=== PATIENT | female | born 1940 | race Hispanic/Latino ===

== ENCOUNTER 2019-10-05 14:43 | Emergency (ER) | payer MEDICARE, SELFPAY ==
--- NOTE | ~2019-10-05 | CT_ITS ---
EXAMINATION: CT brain wo con DATE: 10/05/2019 15:16 INDICATION: Head injury. TECHNIQUE: Computed tomography (CT) of the head was performed without intravenous contrast. The mA wa s adjusted according to patient size. Iterative reconstruction technique was employed. The dose-lengt h product was 605.33 mGy-cm. COMPARISON: Head CT 02/24/2017 FINDINGS: There are old infarcts involving the left basal ganglia and internal capsule. There is an o ld lacunar infarct in the right lentiform nucleus. There is no intracranial hemorrhage, acute infarct ion, or abnormal intracranial mass lesion. The ventricles are normal in size. There are likely change s of ocular lens replacement surgeries. There is mild mucosal thickening in the ethmoid sinuses. The mastoid air cells are normal. IMPRESSION: 1. Old infarcts involving the bilateral basal ganglia and left internal capsule. Reviewed, dictated and finalized at location A. E CURATOR IMPRESSION: 1. Old infarcts involving the bilateral basal ganglia and left internal capsule .
--- NOTE | ~2019-10-05 | XR_ITS ---
EXAMINATION: XR knee RT min 4V DATE: 10/05/2019 15:50 INDICATION: Right knee pain post fall TECHNIQUE: Anteroposterior, 2 oblique and crosstable lateral views of the right knee were obtained COMPARISON: None. FINDINGS: Alignment is normal. No fracture. Joint spaces appear normal on nonweightbearing imaging. No joint e ffusion/layering lipohemarthrosis. Soft tissues are unremarkable. IMPRESSION: 1. Negative right knee radiographs. Reviewed, dictated and finalized at location A. [employer]
--- NOTE | ~2019-10-05 | XR_ITS ---
EXAMINATION: XR hip RT min 3V w AP pelvis DATE: 10/05/2019 15:49 INDICATION: Right hip pain post fall with bruising at the medial femur. TECHNIQUE: Anteroposterior view of the pelvis and anteroposterior, frog leg and cross-table lateral v iews of the right hip were obtained. COMPARISON: None. FINDINGS: Alignment is normal. No fracture. Bilateral hip joint spaces are normal. Mild bilateral sacroiliac os teoarthritis. There are few small heterotopic ossicles projecting over the left buttock. Soft tissues are unremarkable. IMPRESSION: 1. No acute osseous abnormality. Reviewed, dictated and finalized at location A. OSITY INSPECTOR
--- NOTE | 2019-10-05 14:52 | ED.LOWEXIN ---
HPI - Extremity Injury (Lower) General Chief Complaint: Fall Stated Complaint: R KNEE PAIN S/P FALL Time Seen by Provider: 10/05/19 14:51 Source: patient Mode of arrival: EMS Limitations: no limitations History of Present Illness HPI Narrative: Pt is an 79 y/o female who presents to ED, via EMS, with c/o rt knee pain. Pt states that she fell this morning at 11AM. Pt has a H/o a CVA and recently started walking again because she had rt sided paralysis. She hit the rt side of her face and injured her rt knee. Pt was using a walk assist when her knee gave out and she fell. She started walking again a month ago. Pt lives at home with her daughter. She had a CVA at [facility] where she received TPA and air lifted out to U. Pt takes Xarelto, Plavix, and ASA 81mg as her anticoagulation therapy. complaint: knee injury Onset (ago): hour(s) (3-4) Injury: Right: knee Place: home Context: fall Associated symptoms: unable to bear weight Other symptoms: none Related Data Home Medications Medication Instructions Recorded Confirmed Aspirin Low Dose 10/05/19 Calcium 500 10/05/19 Travatan Z 10/05/19 Xarelto 10/05/19 alprazolam 10/05/19 atorvastatin 10/05/19 carvedilol 10/05/19 clopidogrel 10/05/19 cyanocobalamin (vitamin B-12) 10/05/19 escitalopram oxalate mg 10/05/19 famotidine 10/05/19 lisinopril 10/05/19 melatonin 10/05/19 montelukast 10/05/19 promethazine 10/05/19 Allergies Allergy/AdvReac Type Severity Reaction Status Date / Time No Known Allergies Allergy Verified 10/05/19 15:29 Review of Systems Review of Systems: All systems reviewed & are unremarkable except as noted in HPI and below Musculoskeletal: Musculoskeletal: Reports arthralgias (rt knee) Integumentary/Breasts: Skin/Breast: Reports other (contusion rt periorbital region) [facility] Past Medical History Medical History (Updated 10/05/19 @ 16:34 by Debbie Valentin MD) CVA (cerebral vascular accident) Depression Glaucoma HLD (hyperlipidemia) HTN (hypertension) Seasonal allergies Surgical History Surgical History (Updated 10/05/19 @ 15:29 by Faye Lee) H/O section x2 Hx of cholecystectomy Social History Social History (Updated 10/05/19 @ 15:30 by Faye Lee) Smoking status: Former smoker Additional smoking assessment comments: Smoked when she was young Living arrangements: with family Comments Her PCP is Lashon Cooley NP Exam Const: General: cooperative, no acute distress and alert Nutritional Appearance: well nourished Orientation/consciousness: patient oriented x3 Limitations: no limitations HENMT: Head: contusion (rt periorbital region with minimal swelling but no tenderness) Mouth: Yes lip normal and Yes moist mucous membranes Teeth and gingiva: dentures (top and bottom) Neck: Neck: nontender Resp: Effort & Inspection: normal respiratory effort Auscultation: clear to auscultation bilaterally Cardio: Rate: regular rate Rhythm: regular rhythm GI: GI Palp: Yes Soft to palpation and No Tenderness to palpation present (GI) Auscultation: normal bowel sounds Skin: General skin exam: normal color Neuro: General: patient oriented x3 Cognition (Neuro): normal cognition Speech: normal speech Extrem: General: normal to inspection, full ROM, no clubbing, no cyanosis and edema (mild) bilateral Right lower extremity: hip/thigh (pain with rt leg ROM) Details: tenderness Location: of the hip (and proximal femur) and knee Details: no tenderness Psych: Mental Status: mental status grossly normal Affect: normal affect Attitude: cooperative Course Course Emergency Course: No acute abnormalities noted on imaging. Discussed diagnosis of facial contusion and knee sprain. Tylenol given for pain. Vital Signs Vital signs: Vital Signs Temperature 98.2 F 10/05/19 15:00 Pulse Rate 56 L 10/05/19 15:00 Respiratory Rate 18 10/05/19 15:00 Blood Press
[2019-10-05 15:00] VITALS: BP 144/62; PULSE 56; RESP 18; TEMP 36.8; O2SAT 95
[2019-10-05 15:27] VITALS: O2SAT 99
[2019-10-05] MEDS: ACETAMINOPHEN 500 MG TABLET 1000 MG PO (16:47)
[2019-10-05 17:07] VITALS: BP 134/72; PULSE 84; RESP 18; O2SAT 99
== END 2019-10-05 17:05 | disposition home or self-care (01) ==
PROVIDERS: Emergency Provider Emergency Medicine; PCP Nurse Practitioner Adult Health
DX: S83.91XA Sprain of unspecified site of right knee, initial encounter (principal); S00.83XA Contusion of other part of head, initial encounter; I69.951 Hemiplegia and hemiparesis following unspecified cerebrovascular disease affecting right dominant side; Z79.01 Long term (current) use of anticoagulants; Z79.82 Long term (current) use of aspirin; Z79.02 Long term (current) use of antithrombotics/antiplatelets; F32.9 Major depressive disorder, single episode, unspecified; I10 Essential (primary) hypertension; E78.5 Hyperlipidemia, unspecified; H40.9 Unspecified glaucoma; Z87.891 Personal history of nicotine dependence; W18.39XA Other fall on same level, initial encounter
CPT/HCPCS: 70450; 73502; 73564; 99284; A9270

== ENCOUNTER 2020-01-11 17:54 | Emergency (ER) | payer MEDICARE, SELFPAY ==
[2020-01-11] VITALS (7 sets, daily range): BP systolic 115–151; BP diastolic 51–104; PULSE 58–77; RESP 16–20; TEMP 36.3–36.9; O2SAT 96–98
--- NOTE | ~2020-01-11 | XR_ITS ---
EXAMINATION: XR shoulder RT min 2V EXAM DATE: 01/11/2020 19:24 INDICATION: Fall, right shoulder pain. TECHNIQUE: The following right shoulder projections obtained: frontal projection with internal rotati on, frontal projection with external rotation, Grashey, and scapular Y view (4+ views). There is no prior study for comparison. FINDINGS: Mild inferior subluxation of humeral head likely chronic. There are no acute right shoulder fractures or dislocations identified. There is no subcutaneous gas. Probable rotator cuff calcific tendinosis. There are no radiopaque foreign bodies. There is moderate glenohumeral primary osteoar thritis. Right upper ribs are unremarkable. IMPRESSION: 1. Right shoulder exam without acute osseous findings. Reviewed, dictated and finalized at location A.
--- NOTE | ~2020-01-11 | XR_ITS ---
EXAMINATION: XR knee RT 3V EXAM DATE: 01/11/2020 20:25 INDICATION: Initial encounter following injury, with pain of the right knee. TECHNIQUE: Three projections of the right knee. Comparison is made to prior examination from 10/05/2019 . FINDINGS: No evidence osteochondral defect or joint body in the right knee joint. There is no join t effusion. There are no acute fractures or dislocations identified. There is no subcutaneous gas. The soft tissue is unremarkable. There are no radiopaque foreign bodies. IMPRESSION: 1. Right knee exam without acute osseous findings. Reviewed, dictated and finalized at location A.
--- NOTE | ~2020-01-11 | XR_ITS ---
EXAMINATION: XR chest 2V EXAM DATE: 01/11/2020 19:24 INDICATION: Frequent falls. Weakness. TECHNIQUE: Frontal and lateral projections of the chest obtained and reviewed. Comparison is made to prior examination from 08/14/2017. FINDINGS: The lungs are clear. There are no pleural effusions. Cardiac silhouette is prominent but magnified on this AP technique. Cardiac silhouette is stable in size compared to prior exam. There i s aortic arteriosclerosis. There is no pneumothorax suspected. The bones are osteopenic. There are bony degenerative changes. There are cholecystectomy clips. There is no significant interval change. IMPRESSION: No acute cardiopulmonary findings. Reviewed, dictated and finalized at location A.
--- NOTE | ~2020-01-11 | CT_ITS ---
EXAMINATION: CT abdomen pelvis w con EXAM DATE: 01/11/2020 21:47 INDICATION: Abdominal pain, nausea. TECHNIQUE: Spiral CT of the abdomen and pelvis was performed following intravenous injection of 100 m L Omnipaque 350. Axial, coronal and sagittal images were reviewed. The dose-length product (DLP) fo r this examination was 731.45 mGy-cm. The exposure was tailored according to patient size (auto mA e xposure control), and iterative reconstruction (ASIR) was used as additional dose reduction technique . Comparison is made to prior examination from 05/20/2012. FINDINGS: There is a left adrenal gland lesion measuring 8 mm, statistically most likely an adenoma. Liver, pancreas, spleen, right adrenal gland are unremarkable. There are cholecystectomy clips. Por amrit and splenic veins are patent. Kidneys enhance symmetrically. There is no hydronephrosis. The uterus is unremarkable. The bladder is unremarkable. There is no retroperitoneal or pelvic lymphad enopathy. There is moderate scattered arteriosclerotic disease. There is extensive sigmoid diverticulosis. There is mild adjacent inflammation, could be mild uncompl icated acute diverticulitis. There is also a segment of ascending colon that appears to have mild wal l thickening in spite of having stool content (see axial image 85/180, finding indicated). This is po ssible incidental colonic adenocarcinoma. The appendix is normal. There is small sliding gastroesoph ageal hiatal hernia. There is a 3 cm duodenal diverticulum. There is expected amount of colonic stool . No free intraperitoneal gas. There is cardiomegaly. Some dependent groundglass opacity probably atelectasis or possibly mild pulmonary edema. The lung bases are unremarkable. There are no osteob lastic or osteolytic lesions identified. IMPRESSION: 1. Possible ascending colonic adenocarcinoma. Recommend follow-up colonoscopy. 2. Probable mild uncomplicated sigmoid diverticulitis. 3. Cardiomegaly. Dependent groundglass opacity, could be atelectasis or mild pulmonary edema. 4. Chronic findings Reviewed, dictated and finalized at location G. IMPRESSION: 1. Possible ascending colonic adenocarcinoma. Recommend follow-up colonoscopy. 2. Probable mild uncomplicated sigmoid diverticulitis. 3. Cardiomegaly. Dependent groundglass opacity, could be atelectasis or mild p ulmonary edema. 4. Chronic findings
--- NOTE | ~2020-01-11 | XR_ITS ---
EXAMINATION: XR ankle RT min 3V EXAM DATE: 01/11/2020 20:25 INDICATION: Initial encounter following injury, with pain of the right ankle. TECHNIQUE: Right ankle frontal, lateral and oblique projections obtained and reviewed. There is no p rior study for comparison. FINDINGS: The right ankle mortise appears intact. There are no acute fractures or dislocations iden tified. There is no subcutaneous gas. The soft tissue is unremarkable. There are no radiopaque fo reign bodies. IMPRESSION: 1. Right ankle exam without acute osseous findings. Reviewed, dictated and finalized at location A.
--- NOTE | ~2020-01-11 | CT_ITS ---
EXAMINATION: CT brain wo con EXAM DATE: 01/11/2020 20:46 INDICATION: Falls with elevated INR. TECHNIQUE: Spiral CT of the head was performed without contrast. Axial, coronal and sagittal images were reviewed. The dose-length product (DLP) for this examination was 605.33 mGy-cm. The exposure w as tailored according to patient size, and iterative reconstruction (ASIR) was used as additional dos e reduction technique. Comparison is made to prior examination from 10/05/2019. FINDINGS: There is no acute intraparenchymal hemorrhage. No evidence of intraparenchymal brain mass lesion. No evidence of acute infarction. Please note that initial head CT has limited sensitivity f or small or acute infarctions. There are old left basal ganglia lacunar infarctions. These are uncha nged. There is mild periventricular and subcortical hypodensity, nonspecific but probably related to small vessel ischemic disease. There is mild prominence of the sulci and ventricles related to cer ebral atrophy. There is intracranial carotid arteriosclerosis. There are no extra-axial collection s. There is no mass effect or midline shift. Patient has had bilateral ocular lens surgery. Soft t issue is unremarkable. The visualized sinuses and mastoid air cells are well aerated. IMPRESSION: 1. No acute intracranial findings. 2. Chronic age related findings. 3. Old left lacunar infarctions. Reviewed, dictated and finalized at location A.
--- NOTE | 2020-01-11 18:04 | ECG_ITS ---
Measurements Intervals [place] Rate: 63 P: 23 AK: 140 QRS: 1 QRSD: 85 T: 69 QT: 399 QTc: 411 Interpretive Statements SINUS RHYTHM BORDERLINE ST ABNORMALITY- HIGH LATERAL LEADS BORDERLINE ECG Electronically Signed On 01-12-2020 7:10:42 CDT by Roel Gerardo D.O.
[2020-01-11 18:56] LABS: Bilirubin,Total 0.3 mg/dL (0.2-1.3)
--- NOTE | 2020-01-11 18:59 | ED.WEAKNESS ---
HPI - Weakness General Chief complaint: Weakness Stated complaint: Freq Falls Time Seen by Provider: 01/11/20 18:36 Source: patient and family Mode of arrival: wheelchair Limitations: no limitations History of Present Illness HPI Narrative: This is an 79 year old female that presents to the ER for a fall today. Daughter reports she has had more falls lately. Reports she had another fall today. Reports she was trying to use her commode and fell backwards onto her bottom. Denies hitting her head or loss of consciousness. Was told by her PCP that if she fell again she should come to the ER to be evaluated. Reports she has had dysuria over the last week. Also reports abdominal pain and nausea. Reports she has had a chronic cough for a while which has been worsening. Denies fever, vomiting, hematuria, or diarrhea. Related Data Home Medications Medication Instructions Recorded Confirmed Aspirin Low Dose 81 mg DAILY 10/05/19 Calcium 500 600 mg BID 10/05/19 Travatan Z 2.5 ml 10/05/19 Xarelto 2.5 mg BID 10/05/19 atorvastatin 80 mg DAILY 10/05/19 carvedilol 3.125 mg BID 10/05/19 clopidogrel 75 mg DAILY 10/05/19 escitalopram oxalate 5 mg BID 10/05/19 famotidine 20 mg DAILY 10/05/19 lisinopril 40 mg DAILY 10/05/19 melatonin 10 mg HS 10/05/19 montelukast 10 mg HS 10/05/19 amlodipine 10 mg DAILY 01/11/20 Allergies Allergy/AdvReac Type Severity Reaction Status Date / Time flu vaccine AdvReac Rash Uncoded 01/11/20 18:05 Review of Systems Review of Systems: Narrative: CONSTITUTIONAL: Denies fever CARDIOVASCULAR: Denies chest pain RESPIRATORY: Reports cough. Denies dyspnea. GASTROINTESTINAL: Reports abdominal pain, nausea. Denie vomiting, or diarrhea. GENITOURINARY: Reports dysuria. Denies hematuria. MUSCULOSKELETAL: Reports joint pain. Denies back pain, or myalgia. NEUROLOGIC: Denies new numbness, or weakness. All systems reviewed & are unremarkable except as noted in HPI and below PMFSH Past Medical History Medical History (Updated 01/11/20 @ 22:44 by Sandy Irby PA-C) CVA (cerebral vascular accident) Depression Glaucoma HLD (hyperlipidemia) HTN (hypertension) Seasonal allergies Surgical History Surgical History (Updated 10/05/19 @ 15:29 by Faye Lee) H/O section x2 Hx of cholecystectomy Social History Social History (Updated 10/05/19 @ 15:30 by Faye Lee) Smoking status: Former smoker Additional smoking assessment comments: Smoked when she was young Exam Narrative: Exam Narrative: GENERAL: Elderly, well-nourished, and in no acute distress. HEAD: Normocephalic, atraumatic. EYES: PERRLA and EOMI. ENT: Nares clear, no rhinorrhea or epistaxis. Mucous membranes moist. Oropharynx without tonsillar hypertrophy exudate or other lesions. Bilateral TMs pearly vick non-bulging NECK: Supple. No adenopathy or masses. No midline spinal tenderness CHEST: Clear to auscultation. No respiratory distress. No wheezes rales or rhonchi HEART: Regular rate and rhythm. No murmur heard. Normal peripheral pulses. ABDOMEN: Soft, nontender, nondistended, normal active bowel sounds. BACK: No midline spinal tenderness EXTREMITIES: Normal range of motion. No edema. Strength 5/5 in bilateral upper extremities. Strength 5/5 in bilateral lower extremities, except decreased in the right ankle (due to prior stroke) SKIN: Warm, dry, no rash. NEURO: No focal deficits. Alert and oriented x3. PSYCH: Normal mood and affect Course Consultations Consultation #1: poke with patient's primary care Dr. Lashon Cooley about patient and workup who will follow up in clinic and get her referral to GI. Date: 01/11/20 Time: 22:41 Vital Signs Vital signs: Vital Signs Temperature 98.4 F 01/11/20 17:53 Pulse Rate 68 01/11/20 17:53 Respiratory Rate 18 01/11/20 17:53 Blood Pressure 115/104 H 01/11/20 17:53 Pulse Oximetry 98 01/11/20 17:53 Temperature 97.5 F L 01/11/20 22:18 Pulse Rate 63
[2020-01-11 19:15] LABS: Basophils Percent Auto 0.5 % (0.2-1.2); Eosinophils Percent Auto 4.4 % (0-4.4); Hematocrit 38.3 % (37.0-47.0); Hemoglobin 12.8 g/dL (12.0-15.0); Immature Granulocyte Percent A 0.2 % (0-0.5); Lymphocytes Percent Auto 35.9 % (18.3-44.2); Mean Corpuscular HGB Conc 33.4 g/dl (32-36); Mean Corpuscular Hemoglobin 32.5 pg (26-34); Mean Corpuscular Volume 97.2 fl (80-100); Mean Platelet Volume 8.6 fl (7.4-10.4); Monocytes Percent Auto 9.9 % (2.6-8.5); Neutrophils Percent Auto 49.1 % (45.5-73.1); Platelet Count Result 300 k/mm3 (150-375); Red Blood Count 3.94 M/mm3 (4.2-5.4); Red Cell Distribution Width 13.2 % (11.5-14.5); White Blood Count 9.6 K/mm3 (4.5-10.0)
[2020-01-11 19:16] LABS: Basophils Absolute Auto 0.1 K/mm3 (0.0-0.1); Eosinophils Absolute Auto 0.4 K/mm3 (0-0.3); Immature Granulocyte Absolute 0.02 K/mm3 (0.00-0.031); Lymphocytes Absolute Auto 3.44 K/mm3 (0.9-3.2); Neutrophils Absolute Auto 4.7 K/mm3 (1.3-6.7)
[2020-01-11 19:44] LABS: Alanine Aminotransferase 22 U/L (4-35); Albumin Level 4.1 g/dL (3.5-5.1); Alkaline Phosphatase 100 U/L (38-126); Aspartate Amino Transferase 40 U/L (14-36); Blood Urea Nitrogen 14 mg/dL (7-17); Calcium 9.5 mg/dL (8.4-10.2); Carbon Dioxide 31 mmol/L (22-30); Chloride 102 mmol/L (98-107); Estimated Glomerular Filt Rate 48; Glucose 106 mg/dL (65-105); Potassium 4.3 mmol/L (3.4-5.0); Sodium 138 mmol/L (137-145)
[2020-01-11 19:47] LABS: CRP 1.4 mg/dL (<1.0); Lactic Acid Reflex 1.1 mmol/L (0.7-2.1); Lipase 232 U/L (23-300)
[2020-01-11 19:57] LABS: Add Urine Microscopic? YES; Appearance Urine Clear (Clear); Bilirubin Urine Negative (Negative); Blood Urine Negative (Negative); Color Urine Yellow (Yellow); Glucose Urine UA Negative (Negative); Ketones Urine Negative (Negative); Leukocyte Esterase Ur Negative LEU/UL (Negative); Nitrate Urine Negative (Negative); Protein Urine 2+ mg/dL (Negative); Specific Grav Ur 1.016 (1.001-1.035); Urobilinogen Urine Negative mg/dL (<2.0)
[2020-01-11 20:02] LABS: Prothrombin Time > 120.0 Seconds (11.1-14.7)
[2020-01-11 20:05] LABS: INR > 19.0
[2020-01-11 20:37] LABS: Partial Thromboplastin Time 29.3 SECONDS (22.3-36.8)
[2020-01-11 20:45] LABS: INR 1.2; Partial Thromboplastin Time 23.6 SECONDS (22.3-36.8); Prothrombin Time 14.4 Seconds (11.1-14.7)
[2020-01-11] MEDS: AMOXICILLIN/CLAVULANATE K 875-125 MG TAB 1 TABLET PO (22:41)
== END 2020-01-11 23:14 | disposition home or self-care (01) ==
PROVIDERS: Physician Assistant; Emergency Provider Emergency Medicine; PCP Nurse Practitioner Adult Health
DX: K57.32 Diverticulitis of large intestine without perforation or abscess without bleeding (principal); K63.9 Disease of intestine, unspecified; I51.7 Cardiomegaly; I69.951 Hemiplegia and hemiparesis following unspecified cerebrovascular disease affecting right dominant side; Z87.891 Personal history of nicotine dependence; E78.5 Hyperlipidemia, unspecified; I10 Essential (primary) hypertension; H40.9 Unspecified glaucoma; Z79.82 Long term (current) use of aspirin; Z79.01 Long term (current) use of anticoagulants; F32.9 Major depressive disorder, single episode, unspecified; R94.31 Abnormal electrocardiogram [ECG] [EKG]; R29.6 Repeated falls; W18.11XA Fall from or off toilet without subsequent striking against object, initial encounter
CPT/HCPCS: 36415; 51701; 70450; 71046; 73030; 73562; 73610; 74177; 80053; 81001; 83605; 83690; 85025; 85610; 85730; 86140; 93005; 99284; A9270; Q9967